=== PATIENT | female | born 1955 | race Caucasian/White ===

== ENCOUNTER → 2025-06-06 13:53 | Outpatient (BNVA) | payer MEDICARE, SELFPAY | PROVIDERS: PCP Family Medicine; Visit Provider Podiatrist Foot & Ankle Surgery | DX: M79.671 Pain in right foot (principal); M20.41 Other hammer toe(s) (acquired), right foot; M25.871 Other specified joint disorders, right ankle and foot; M21.611 Bunion of right foot; M62.461 Contracture of muscle, right lower leg | CPT/HCPCS: 73630; 99204 ==